=== PATIENT | male | born 1970 | race Caucasian/White ===

== ENCOUNTER 2016-10-19 21:21 | Observation (INO) | payer BC ==
[~2016-10-19] VITALS: Ht 182.9 cm; Wt 87.8 kg
[2016-10-19] MEDS ORDERED: KETOROLAC 15 MG/ML VIAL. IV ONE (22:00)
[2016-10-19] MEDS ORDERED: HYDROMORPHONE 2 MG/ML VIAL. IV ONE (22:00)
[2016-10-19] MEDS ORDERED: ONDANSETRON ODT 4 MG TAB.RAPDIS PO ONE (22:00)
[2016-10-19 22:28] LABS: BASO # 0.1 x10^3/uL (0.0-0.2); BASO % 1 % (0-3); EOS % 1 % (0-3); HEMATOCRIT 46.3 % (39.0-53.0); HEMOGLOBIN 15.2 g/dL (13.0-17.5); LYMPH # 1.9 x10^3/uL (1.0-4.8); LYMPH % 14 % (24-48); MEAN CORPUSCULAR HEMOGLOBIN 31 pg (25-35); MEAN CORPUSCULAR HGB CONC 33 g/dL (31-37); MEAN CORPUSCULAR VOLUME 93 fL (79-100); MONO % 7 % (0-9); NEUT % 79 % (31-73); PLATELET COUNT 165 x10^3/uL (140-400); RED BLOOD COUNT 4.98 x10^6/uL (4.30-5.70); RED CELL DISTRIBUTION WIDTH 13.4 % (11.5-14.5); WHITE BLOOD COUNT 14.1 x10^3/uL (4.0-11.0)
[2016-10-19 22:37] LABS: CALCIUM 8.6 mg/dL (8.5-10.1); CREATININE 1.1 mg/dL (0.7-1.3); GFR 71.8; POTASSIUM 3.7 mmol/L (3.5-5.1)
[2016-10-19 22:43] LABS: ALBUMIN 3.7 g/dL (3.4-5.0); TOTAL BILIRUBIN 0.4 mg/dL (0.2-1.0); TOTAL PROTEIN 7.4 g/dL (6.4-8.2)
[2016-10-19] MEDS ORDERED: ACETAMINOPHEN 325 MG TABLET. PO PRN (23:15)
[2016-10-19] MEDS ORDERED: ONDANSETRON PF 4 MG/2 ML VIAL. IV PRN (23:15)
[2016-10-19] MEDS ORDERED: NITROGLYCERIN SUBLINGUAL 0.4 MG BOTTLE OF 25. SL PRN (23:15)
--- NOTE | 2016-10-19 23:22 | PHYS DOC ---
Past Medical History Past Medical History: No Pertinent History Past Surgical History: Other Additional Past Surgical Histo: NECK, ANKLE Alcohol Use: Heavy Drug Use: None Adult General Chief Complaint Chief Complaint: MECHANICAL FALL HPI HPI Patient is a 46 year old gentleman who presents here today complaining of left shoulder pain after falling down earlier today. Patient reports that he tripped over his feet. Patient denies any dizziness, presyncope, chest pain, shortness of breath, or loss of consciousness before or after the episode. Patient's only current complaint is pain to his left shoulder. Patient's pain is described as sharp in nature and increases with movement of his left shoulder. The pain in his left shoulder started immediately after his fall and has been continuing since. Patient has no past medical history. Patient has no history of hypertension diabetes liver longer kidney problems. Patient has no history of coronary artery disease in the past. Patient has no family history of coronary artery disease in the past. Patient does not have a history of high cholesterol. Patient reports he smokes occasionally. Occasional alcohol. Drugs. Patient denies any recent cocaine, methamphetamine use. Patient denies any discomfort pressure sharp pain or any abnormal sensation in his chest. Patient denies any shortness of breath or diaphoresis or nausea. Patient reports she's never had any Cardiac history or workup in the past. Patient does not recall ever having an EKG done in the past either. Patient reports only pain he has in his left shoulder is ever since his fall and increases with motion of his left shoulder. Patient denies any exertional type of chest pain. Patient denies any family history of coronary artery disease. Patient's mother reports that his father did have some kind of tumor around his heart but she does no not know any other specifics regarding this tumor. Patient's physical exam is significant for tenderness to palpation to his left before meals joint. Patient does have soft tissue swelling and tenderness to the area. Patient's range of motion is intact but is somewhat limited secondary to the pain and discomfort. There is no other deformity or step-off. Patient does not have a exam that would be consistent with a dislocation of the shoulder. Patient is neurovascularly intact otherwise. Patient's x-ray nerve distribution is intact. Patient's pulses are intact. Patient had a shoulder x-ray which revealed an ac separation. This is consistent with his physical exam. Patient monitor revealed some nonspecific ST elevations. An EKG was obtained. EKG revealed ST segment elevation in II, III, and F aVF. We went back to question the patient once again and the patient again denies any chest pain discomfort or any kind of symptoms I'll be consistent with coronary artery disease or coronary spasms. Patient's labs were drawn. Patient's troponin is negative. A repeat EKG was performed on the patient approximately one hour after the first EKG of concern. Of interest is the patient's repeat EKG which shows some resolution in the nonspecific elevations in leads II, III, and F aVF. I had a long conversation with the patient regarding my concerns with the abnormal EKG. Despite the patient's lack of any symptoms I do not feel comfortable sending this patient home without further evaluation by cardiology. Given that the patient has actually no chest discomfort or pain at this time and the only complaint that he has his left shoulder pain that appears to be 100 % related to a mechanical fall and did not feel that he would be indicated for him to go to the cardiac [employer] at this time. Patient's repeat EKG at 2255 shows significant resolution of the elevations in his ST segments and currently does not meet criteria for ST elevation. We will get a second troponin on this patient which would be roughly 2 hours after his first troponin was obtained. Patient will be admitted for further observation and for evaluation by cardiology in the a.m. Review of Systems Review of Systems Constitutional: Denies fever or chills [] Eyes: Denies change in visual acuity, redness, or eye pain [] All other review systems are negative except as documented in the history of present illness portion. Current Medications Current Medications Current Medications Medications (Trade) Dose Ordered Sig/[facility] Start Time Stop Time Status Last Admin Dose Admin Acetaminophen (Tylenol) 650 mg PRN Q4HRS PRN 10/19/16 23:15 10/20/16 23:14 Acetaminophen/ Hydrocodone Bitart (Lortab 5/325) 1 tab Q6HRS PRN 10/19/16 23:15 UNV Aspirin (Toña Aspirin) 325 mg 1X ONCE 10/19/16 23:30 10/19/16 23:31 Hydromorphone HCl (Dilaudid) 0.5 mg 1X ONCE 10/19/16 22:00 10/19/16 22:01 DC 10/19/16 22:19 0.5 MG Ibuprofen (Motrin) 600 mg Q6HRS PRN 10/19/16 23:15 UNV Ketorolac Tromethamine (Toradol) 15 mg 1X ONCE 10/19/16 22:00 10/19/16 22:01 DC 10/19/16 22:16 15 MG Nitroglycerin (Nitrostat) 0.4 mg PRN Q5MIN PRN 10/19/16 23:15 10/20/16 23:14 Ondansetron HCl (Zofran Odt) 4 mg 1X ONCE 10/19/16 22:00 10/19/16 22:01 DC 10/19/16 22:15 4 MG Ondansetron HCl (Zofran) 4 mg PRN Q8HRS PRN 10/19/16 23:15 10/20/16 23:14 Allergies Allergies Allergies Coded Allergies Type Severity Reaction Last Updated Verified No Known Drug Allergies 10/19/16 No Physical Exam Physical Exam Constitutional: Well developed, well nourished, no acute distress, non-toxic appearance. [] HENT: Normocephalic, atraumatic, bilateral external ears normal, oropharynx moist, no oral exudates, nose normal. [] Eyes: PERRLA, EOMI, conjunctiva normal, no discharge. [] Neck: Normal range of motion, no tenderness, supple, no stridor. [] Cardiovascular:Heart rate regular rhythm, no murmur [] Lungs & Thorax: Bilateral breath sounds clear to auscultation [] Abdomen: Bowel sounds normal, soft, no tenderness, no masses, no pulsatile masses. [] Skin: Warm, dry, no erythema, no rash. [] Back: No tenderness, no CVA tenderness. [] Extremities: see above Neurologic: Alert and oriented X 3, normal motor function, normal sensory function, no focal deficits noted. [] Psychologic: Affect normal, judgement normal, mood normal. [] Current Patient Data Vital Signs Vital Signs Date Time Temp Pulse Resp B/P Pulse Ox O2 Delivery O2 Flow Rate FiO2 10/19/16 22:19 16 100 Room Air 10/19/16 21:35 98.0 52 96/64 98.0 Lab Values Laboratory Tests Test 10/19/16 22:15 White Blood Count 14.1x10^3/uL (4.0-11.0) H Red Blood Count 4.98x10^6/uL (4.30-5.70) Hemoglobin 15.2g/dL (13.0-17.5) Hematocrit 46.3% (39.0-53.0) Mean Corpuscular Volume 93fL (79-100) Mean Corpuscular Hemoglobin 31pg (25-35) Mean Corpuscular Hemoglobin Concent 33g/dL (31-37) Red Cell Distribution Width 13.4% (11.5-14.5) Platelet Count 165x10^3/uL (140-400) Neutrophils (%) (Auto) 79% (31-73) H Lymphocytes (%) (Auto) 14% (24-48) L Monocytes (%) (Auto) 7% (0-9) Eosinophils (%) (Auto) 1% (0-3) Basophils (%) (Auto) 1% (0-3) Neutrophils # (Auto) 11.1x10^3uL (1.8-7.7) H Lymphocytes # (Auto) 1.9x10^3/uL (1.0-4.8) Monocytes # (Auto) 0.9x10^3/uL (0.0-1.1) Eosinophils # (Auto) 0.1x10^3/uL (0.0-0.7) Basophils # (Auto) 0.1x10^3/uL (0.0-0.2) Sodium Level 144mmol/L (136-145) Potassium Level 3.7mmol/L (3.5-5.1) Chloride Level 105mmol/L (98-107) Carbon Dioxide Level 27mmol/L (21-32) Anion Gap 12 (6-14) Blood Urea Nitrogen 12mg/dL (8-26) Creatinine 1.1mg/dL (0.7-1.3) Estimated GFR (Cockcroft-Gault) 71.8 BUN/Creatinine Ratio 11 (6-20) Glucose Level 136mg/dL (70-99) H Calcium Level 8.6mg/dL (8.5-10.1) Total Bilirubin 0.4mg/dL (0.2-1.0) Aspartate Amino Transferase (AST) 28U/L (15-37) Alanine Aminotransferase (ALT) 35U/L (16-63) Alkaline Phosphatase 64U/L (46-116) Troponin I Quantitative < 0.017ng/mL (0.000-0.055) Total Protein 7.4g/dL (6.4-8.2) Albumin 3.7g/dL (3.4-5.0) Albumin/Globulin Ratio 1.0 (1.0-1.7) Laboratory Tests 10/19/16 22:15 Laboratory Tests 10/19/16 22:15 EKG EKG [] Radiology/Procedures Radiology/Procedures [] Course & Med Decision Making Course & Med Decision Making Pertinent Labs and Imaging studies reviewed. (See chart for details) [] Dragon Disclaimer Dragon Disclaimer This electronic medical record was generated, in whole or in part, using a voice recognition dictation system. Departure Departure Impression: Primary Impression: Abnormal EKG Additional Impressions: Derangement of left acromioclavicular joint Separation of left acromioclavicular joint Disposition: 09 ADMITTED INPATIENT Admitting Physician: Gemma Islas Condition: STABLE Referrals: NO PCP (PCP) Problem Qualifiers DELFIN HICKS MD Oct 19, 2016 23:22
[2016-10-19] MEDS ORDERED: ASPIRIN 325 MG TABLET PO ONE (23:30)
[2016-10-19] MEDS: HYDROCODONE/APAP 5/325MG TABLET. PO PRN (23:59)
[2016-10-20] VITALS (7 sets, daily range): BP systolic 96–132; BP diastolic 57–82
--- NOTE | 2016-10-20 01:38 | ACF ---
Admission Forms Criteria CARDIOLOGY GRG Clinical Indications for Admission to Inpatient Care ( Place 'X' for any and all applicable criteria): Hospital admission is needed for appropriate care of the patient because of ANY ONE of the following (1): [ ] I. Hemodynamic instability as indicated by ALL of the following (1)(2)(3) (4)(5) [ ]a) Vital signs or other findings not as expected for chronic patient condition or baseline [ ]b) Instability indicated by ANY ONE of the following: [ ]i) Hypotension [ ]ii) Symptomatic Tachycardia unresponsive to treatment ( e.g., analgesia, fluids, sedation as indicated) [ ]iii) Inadequate perfusion indicated by ANY ONE of the following: [ ] 1) Lactic acidosis (> 2 mmol/L) [ ] 2) New abnormal capillary refill (> 3 seconds) [ ] 3) Reduced urine output [ ] 4) New altered mental status [ ]iv) Orthostatic vital sign changes unresponsive to treatment (e.g., fluids) [ ]v) IV inotropic or vasopressor medication required to maintain adequate blood pressure or perfusion [ ] II. Severe heart failure as indicated by ANY ONE of the following(17)(18) [ ]a) Respiratory distress [ ]b) Hypotension [ ]c) Anasarca (refractory to outpatient therapy) [ ]d) Cardiac arrhythmias of immediate concern [ ]e) Myocardial ischemia [ ] III. Cardiac arrhythmias or findings of immediate concern indicated by ANY ONE of the following (19)(20): [ ] a) Heart rhythms that are inherently dangerous or unstable indicated by ANY ONE of the following (21)(22)(23): [ ] i) Resuscitated ventricular fibrillation or cardiac arrest [ ] ii) Ventricular escape rhythm [ ] iii) Sustained ventricular tachycardia (30 seconds or more of ventricular rhythm at greater than 100 beats per minute) [ ] iv) Nonsustained ventricular tachycardia and ANY ONE of the following: [ ] 1) Suspected cardiac ischemia as cause or consequence of ventricular tachycardia [ ] 2) In setting of acute myocarditis [ ] b) Unstable cardiac conduction defects indicated by ANY ONE of the following(23)(24)(25) [ ] i) Type II second-degree atrioventricular block [ ]ii) Third-degree atrioventricular block [ ]iii) New-onset left bundle branch block with suspected myocardial ischemia [ ]c) Any heart rhythm and ANY ONE of the following (21)(22)(26)(27) (28) [ ] i) Continuous long-term ECG monitoring needed (e.g., initiation of drug requiring monitoring for more than 24 hours) [ ] ii) Patient has automatic implanted cardioverter defibrillator that is repeatedly firing, malfunctioning, or in need of immediate adjustment of settings beyond the scope of ambulatory or observation care [ ]d) Heart rhythms of concern due to ANY ONE of the following: [ ] i) Hypotension [ ] ii) Respiratory distress [ ] iii) Association with other significant symptoms (e.g., bradycardia with syncope or ongoing dizziness, supraventricular tachycardia with chest pain (14)(15)(17) [ ] IV. Monitoring for cardiac contusion beyond the scope of observation care needed [A](30)(31)(32) [ ] V. Surgical or device complication (e.g., valve replacement complication , pacemaker dysfunction) (35)(41)(44)(45)(46) [ ] . Inpatient palliative care needed. [B](49) Also use Inpatient Palliative Care Criteria [ ] VII. Nonbacterial thrombotic (marantic) endocarditis (36)(43)(47)(48) [X] VIII. Cardiology condition, symptom, or finding for which emergency and observation care has failed or are not considered appropriate. [ ] IX. Acute valvular disease requiring inpatient as indicated by ANY ONE of the following (41) [ ]a) Acute valvular regurgitation (42) [ ]b) Noninfectious valvulitis (43) [ ]c) Obstructive valve thrombosis [ ]d) Paravalvular leak [ ]e) Other significant valvular disorder remaining after emergency or observation level of care (as appropriate) [ ]X. Pericardial disease requiring inpatient treatment as indicated by ANY ONE of the following (33)(34)(35)(36)(37) [ ]a) Suspected tamponade (38)(39)(40) [ ]b) Hemopericardium [ ]c) Other significant pericardial disorder remaining after emergency or observation level of care (as appropriate) [ ] XI. Cardiac ischemia beyond scope of emergency and observation care. [ ] XII. Hypertension requiring inpatient treatment as indicated by ANY ONE of the following (6)(7)(8) [ ]a) SBP greater than 220 mm Hg or DBP greater than 120 mmHg despite treatment [ ]b) SBP greater than 140 mm Hg or DBP greater than 100 mm Hg with evidence of acute end organ damage as indicated by ANY ONE of the following [ ] i) Encephalopathy [ ] ii) Acute renal failure as indicated by new onset of ANY ONE of the following (9)(10)(11)(12)(13) [ ]1) 3-fold rise in serum creatinine from baseline [ ]2) Serum creatinine greater than 4 mg/dL ( 354 micromoles/L) with acute rise greater than 0.5 mg/dL (44.2 micromoles/L) [ ]3) Reduction of more than 75% in estimated glomerular filtration rate from baseline [ ]4) Estimated glomerular filtration rate less than 35 mL/min/1.73m2 (0.59 mL/sec/1.73m2) in child up to 18 years of age [ ]5) Cessation of urine output indicated by ALL of the following [ ]A. Adequate volume status [ ]B. Inadequate urine output as indicated by ANY ONE of the following [ ]a. Urine output less than 0.3 mL/kg/hr for 24 hours [ ]b. Anuria (urine output less than 0.1 mL/kg/hr) for 12 hours [ ] iii) Aortic dissection [ ] iv) Myocardial Ischemia [ ] v) Left ventricular heart failure [ ]vi) Retinal Hemorrhage [ ]vii) Other significant finding [ ]c) Hypertension in child requiring inpatient treatment as indicated by ALL of the following(14)(15)(16) [ ] i) Outpatient treatment not effective, not available, or not appropriate [ ]ii) SBP or DBP greater than 95th percentile for age [ ]iii) Evidence of acute end organ damage as indicated by ANY ONE of the following [ ]1) Altered mental status [ ]2) Acute renal failure as indicated by new onset of ANY ONE of the following(9)(10)(11)(12)(13) [ ]A. 3-fold rise in serum creatinine from baseline [ ]B. Serum creatinine greater than 4 mg/dL (354 micromoles/L) with acute rise greater than 0.5 mg/dL (44.2 micromoles/L) [ ]C. Reduction of more than 75% in estimated glomerular filtration rate from baseline [ ]D. Estimated glomerular filtration rate less than 35 mL/min/1.73m2 (0.59 mL/sec/1.73m2) in child up to 18 years of age [ ]E. Cessation of urine output indicated by ALL of the following [ ]a. Adequate volume status [ ]b. Inadequate urine output as indicated by ANY ONE of the following [ ]i) Urine output less than 0.3 mL/kg/hr for 24 hours [ ]ii) Anuria ( urine output less than 0.1 mL/kg/hr) for 12 hours [ ]3) Severe headache [ ]4) Visual disturbance [ ]5) Retinal hemorrhage [ ]6) Other significant finding [ ]XIII. Complications of transplanted heart indicated by ANY ONE of the following(61): [ ]a) Acute graft rejection requiring inpatient management (eg, intravenous immunosuppression)(62)(63) [ ]b) Acute graft heart failure indicated by ANY ONE of the following(64): [ ]i) Hemodynamic instability [ ]ii) Cardiac arrhythmias of immediate concern [ ]iii) Pulmonary edema that is very severe (eg, mechanical ventilation needed, imminent or likely, need for 100% oxygen to keep oxygen saturation above 90%) [ ]iv) Pulmonary edema that is persistent as indicated by ALL of the following: [ ]1) New need for oxygen therapy to keep oxygen saturation above 90% (or increased FiO2 need from baseline) [ ]2) Has not improved sufficiently with emergency department or observation care IV diuretics or other heart failure treatments[E] [ ]v) Altered mental status that is severe or persistent [ ]vi) Increased creatinine (new on laboratory test) with reduction of more than 50% in estimated glomerular filtration rate from baseline [ ]vii) Progressively (ongoing) rising creatinine (known from past laboratory test) with reduction of more than 25% in estimated glomerular filtration rate from baseline [ ]viii) Acute renal failure [ ]ix) Acute peripheral ischemia (eg, examination shows pulseless, cool, mottled, or cyanotic extremity) [ ]x) Pulmonary artery catheter monitoring needed [ ]xi) Other sign or symptom of heart failure requiring inpatient treatment (ie, too severe or not responsive to outpatient and observation care treatment) [ ]c) Infection requiring inpatient management (eg, Hemodynamic instability, need for intravenous antimicrobial treatment)(66)(67)(68)(69)(70) [ ]d) Cardiac allograft vasculopathy requiring inpatient management ( eg evidence of cardiac ischemia)(71) [ ]e) Other complication of transplanted heart (eg, stroke, severe pulmonary hypertension, severe valvular dysfunction) requiring inpatient management(72) The original [facility] content created by [facility] has been revised. The portions of the content which have been revised are identified through the use of italic text or in bold, and [facility] has neither reviewed nor approved the modified material. All other unmodified content is copyright [facility]. Please see references footnoted in the original [facility] edition 2016 Admission Criteria Met?: Yes JAVAN HART Oct 20, 2016 01:38
[2016-10-20] MEDS: IBUPROFEN 600 MG TABLET. PO PRN ×3 (01:53→19:20)
[2016-10-20] MEDS: HYDROCODONE/APAP 5/325MG TABLET. PO PRN ×3 (07:41→21:32)
--- NOTE | 2016-10-20 08:12 | RAD ---
EXAM: CHEST 1 VIEW History: Left shoulder pain Comparison: 08/03/2009 TECHNIQUE: Single portable radiograph of the chest FINDINGS: The cardiac silhouette is unremarkable. The lungs are clear bilaterally. The costophrenic sulci are clear and well demarcated. There is mild superior translation of the clavicle in relation to the acromion. IMPRESSION: Mild superior translation of the distal clavicle in relation to the acromion, probable AC joint separation. No acute cardiopulmonary findings.
--- NOTE | 2016-10-20 08:26 | PDOC2 ---
CONSULT Date of Consult Date of Consult DATE: 10/20/16 TIME: 08:19 Reason for Consult Reason for Consult: Abnormal ekg Referring Physician Referring Physician: Dr. Islas Identification/Chief Complaint Chief Complaint Left shoulder pain Source Source: Patient History of Present Illness Reason for Visit: The patient is a 46-year-old male who came to the emergency room after a mechanical fall with injury to his left shoulder. Workup of his shoulder showed no fractures and the patient has been treated for pain and is feeling better today. The patient's initial EKG reportedly showed elevated ST segment changes in the inferior leads. The patient denied any chest pain, shortness of breath, dizziness or lightheadedness. He denies any history of coronary artery disease, congestive heart failure or cardiac arrhythmias. He's been monitored overnight with no chest discomfort developing. Troponin has been normal 3. The patient is now resting fairly comfortably in bed except for his left shoulder pain. Past Medical History Cardiovascular: HTN Past Surgical History Past Surgical History: No pertinent history Family History Family History: Hypertension Social History No ALCOHOL: social Current Problem List Problem List Problems Medical Problems: (1) Abnormal EKG Status: Acute (2) Derangement of left acromioclavicular joint Status: Acute (3) Separation of left acromioclavicular joint Status: Acute Current Medications Current Medications Current Medications Hydromorphone HCl (Dilaudid) 0.5 mg 1X ONCE IV Last administered on 10/19/16 22:19; Start 10/19/16 at 22:00; Stop 10/19/16 at 22:01; Status DC Ketorolac Tromethamine (Toradol) 15 mg 1X ONCE IV Last administered on 22:16; Start 10/19/16 at 22:00; Stop 10/19/16 at 22:01; Status DC Ondansetron HCl (Zofran Odt) 4 mg 1X ONCE PO Last administered on 10/19/16 22: 15; Start 10/19/16 at 22:00; Stop 10/19/16 at 22:01; Status DC Aspirin (Toña Aspirin) 325 mg 1X ONCE PO Last administered on 10/19/16 23:59 ; Start 10/19/16 at 23:30; Stop 10/19/16 at 23:31; Status DC Ondansetron HCl (Zofran) 4 mg PRN Q8HRS PRN IV NAUSEA/VOMITING; Start 10/19/16 at 23:15; Stop 10/20/16 at 23:14 Acetaminophen (Tylenol) 650 mg PRN Q4HRS PRN PO FEVER; Start 10/19/16 at 23:15; Stop 10/20/16 at 23:14 Nitroglycerin (Nitrostat) 0.4 mg PRN Q5MIN PRN SL CHEST PAIN; Start 10/19/16 at 23:15; Stop 10/20/16 at 23:14 Ibuprofen (Motrin) 600 mg PRN Q6HRS PRN PO MODERATE PAIN Last administered on 01:53; Start 10/19/16 at 23:15 Acetaminophen/ Hydrocodone Bitart (Lortab 5/325) 1 tab PRN Q6HRS PRN PO SEVERE PAIN Last administered on 10/20/16 07:41; Start 10/19/16 at 23:15 Allergies Allergies: Coded Allergies: No Known Drug Allergies (Unverified , 10/19/16) ROS Musculoskeletal: Yes Other (left shoulder pain) Physical Exam General: mild distress HEENT: Atraumatic Lungs: Clear to auscultation Heart: Regular rate Abdomen: Normal bowel sounds Vitals VITALS Vital Signs Date Time Temp Pulse Resp B/P Pulse Ox O2 Delivery O2 Flow Rate FiO2 10/20/16 07:41 Room Air 10/20/16 07:00 98.6 67 20 104/61 98 98.6 Labs Labs Laboratory Tests Test 10/19/16 22:15 10/20/16 00:01 10/20/16 05:10 White Blood Count 14.1x10^3/uL (4.0-11.0) Red Blood Count 4.98x10^6/uL (4.30-5.70) Hemoglobin 15.2g/dL (13.0-17.5) Hematocrit 46.3% (39.0-53.0) Mean Corpuscular Volume 93fL (79-100) Mean Corpuscular Hemoglobin 31pg (25-35) Mean Corpuscular Hemoglobin Concent 33g/dL (31-37) Red Cell Distribution Width 13.4% (11.5-14.5) Platelet Count 165x10^3/uL (140-400) Neutrophils (%) (Auto) 79% (31-73) Lymphocytes (%) (Auto) 14% (24-48) Monocytes (%) (Auto) 7% (0-9) Eosinophils (%) (Auto) 1% (0-3) Basophils (%) (Auto) 1% (0-3) Neutrophils # (Auto) 11.1x10^3uL (1.8-7.7) Lymphocytes # (Auto) 1.9x10^3/uL (1.0-4.8) Monocytes # (Auto) 0.9x10^3/uL (0.0-1.1) Eosinophils # (Auto) 0.1x10^3/uL (0.0-0.7) Basophils # (Auto) 0.1x10^3/uL (0.0-0.2) Sodium Level 144mmol/L (136-145) Potassium Level 3.7mmol/L (3.5-5.1) Chloride Level 105mmol/L (98-107) Carbon Dioxide Level 27mmol/L (21-32) Anion Gap 12 (6-14) Blood Urea Nitrogen 12mg/dL (8-26) Creatinine 1.1mg/dL (0.7-1.3) Estimated GFR (Cockcroft-Gault) 71.8 BUN/Creatinine Ratio 11 (6-20) Glucose Level 136mg/dL (70-99) Calcium Level 8.6mg/dL (8.5-10.1) Total Bilirubin 0.4mg/dL (0.2-1.0) Aspartate Amino Transf (AST/SGOT) 28U/L (15-37) Alanine Aminotransferase (ALT/SGPT) 35U/L (16-63) Alkaline Phosphatase 64U/L (46-116) Troponin I Quantitative < 0.017ng/mL (0.000-0.055) < 0.017ng/mL (0.000-0.055) < 0.017ng/mL (0.000-0.055) Total Protein 7.4g/dL (6.4-8.2) Albumin 3.7g/dL (3.4-5.0) Albumin/Globulin Ratio 1.0 (1.0-1.7) Laboratory Tests Test 10/19/16 22:15 10/20/16 00:01 10/20/16 05:10 White Blood Count 14.1x10^3/uL (4.0-11.0) Red Blood Count 4.98x10^6/uL (4.30-5.70) Hemoglobin 15.2g/dL (13.0-17.5) Hematocrit 46.3% (39.0-53.0) Mean Corpuscular Volume 93fL (79-100) Mean Corpuscular Hemoglobin 31pg (25-35) Mean Corpuscular Hemoglobin Concent 33g/dL (31-37) Red Cell Distribution Width 13.4% (11.5-14.5) Platelet Count 165x10^3/uL (140-400) Neutrophils (%) (Auto) 79% (31-73) Lymphocytes (%) (Auto) 14% (24-48) Monocytes (%) (Auto) 7% (0-9) Eosinophils (%) (Auto) 1% (0-3) Basophils (%) (Auto) 1% (0-3) Neutrophils # (Auto) 11.1x10^3uL (1.8-7.7) Lymphocytes # (Auto) 1.9x10^3/uL (1.0-4.8) Monocytes # (Auto) 0.9x10^3/uL (0.0-1.1) Eosinophils # (Auto) 0.1x10^3/uL (0.0-0.7) Basophils # (Auto) 0.1x10^3/uL (0.0-0.2) Sodium Level 144mmol/L (136-145) Potassium Level 3.7mmol/L (3.5-5.1) Chloride Level 105mmol/L (98-107) Carbon Dioxide Level 27mmol/L (21-32) Anion Gap 12 (6-14) Blood Urea Nitrogen 12mg/dL (8-26) Creatinine 1.1mg/dL (0.7-1.3) Estimated GFR (Cockcroft-Gault) 71.8 BUN/Creatinine Ratio 11 (6-20) Glucose Level 136mg/dL (70-99) Calcium Level 8.6mg/dL (8.5-10.1) Total Bilirubin 0.4mg/dL (0.2-1.0) Aspartate Amino Transf (AST/SGOT) 28U/L (15-37) Alanine Aminotransferase (ALT/SGPT) 35U/L (16-63) Alkaline Phosphatase 64U/L (46-116) Troponin I Quantitative < 0.017ng/mL (0.000-0.055) < 0.017ng/mL (0.000-0.055) < 0.017ng/mL (0.000-0.055) Total Protein 7.4g/dL (6.4-8.2) Albumin 3.7g/dL (3.4-5.0) Albumin/Globulin Ratio 1.0 (1.0-1.7) Assessment/Plan Assessment/Plan 1. Mechanical fall with injury to his left shoulder. Patient has been worked up and treated as above. 2. Abnormal EKG. No reports of chest pain. No history of coronary artery disease , congestive heart failure or cardiac arrhythmias. Troponin normal 3. We'll check an echocardiogram today to look for wall motion abnormalities. Otherwise the patient could be considered for a outpatient stress test for further follow- up. 3. Borderline hypertension. We'll continue to monitor. Thank you for allowing us to participate in the care of your patient. RAFIQ MASON MD Oct 20, 2016 08:25
--- NOTE | 2016-10-20 08:39 | RAD ---
Examination: 2 views of the left shoulder History: History of trauma, pain left shoulder. Comparison: None available Findings: There is mild superior translation of the distal clavicle in relation to the acromion with widening of the acromioclavicular joint likely AC joint separation. The humeral head is within the glenoid. Impression: 1.There is mild superior translation of the distal clavicle in relation to the acromion with widening of the acromioclavicular joint likely AC joint separation.
--- NOTE | 2016-10-20 09:55 | EKG ---
[facility] [address] [place] [address] Test Date: 2016-10-19 Test Time: 22:55:34 Pat Name: EVIE YU Department: Room: 410 Gender: M Plan Examiner: : 1970 Requested By: DELFIN HICKS Order Number: [id number] Reading MD: Rosalio Wang Measurements Intervals [place] Rate: 74 P: 56 [place]: 172 QRS: 59 QRSD: 102 T: 49 QT: 388 QTc: 436 Interpretive Statements SINUS RHYTHM ST & T ABNORMALITY, CONSIDER RECENT INFERIOR MYOCARDIAL OR PERICARDIAL DAMAGE RI6.01 Unconfirmed report No previous ECG available for comparison Electronically Signed On 10-21-2016 14:08:51 INSURANCE INSPECTOR by Rosalio Wang
--- NOTE | 2016-10-20 09:57 | EKG ---
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 RI6.01 Unconfirmed report No previous ECG available for comparison Electronically Signed On 10-21-2016 14:08:24 LEGISLATIVE ADVOCATE by Rosalio Wang
--- NOTE | 2016-10-20 14:06 | SSS ---
ADMIT DATE: 10/20/2016 CHIEF COMPLAINT: Left shoulder pain after fall. HISTORY OF THE PRESENT ILLNESS: The patient is a pleasant middle-aged male who fell. He has some shoulder pain. While in the ER, he also had some subtle EKG changes. Chest x-ray was showing a displaced AC joint. The shoulder x-ray showed similar changes. Basically, he was admitted overnight for observation. This morning, he is doing better. I plan to have Orthopedics see him and then if they are okay, let him go. PHYSICAL EXAMINATION: VITAL SIGNS: Temperature afebrile, pulse 77, respirations 18, and blood pressure 144/90. GENERAL: He is alert, cooperative. HEART: Normal S1 and S2. LUNGS: Clear. ABDOMEN: Soft. EXTREMITIES: No edema. The left arm is a little painful to touch at the shoulder. ENDOCRINE: No thyromegaly. LYMPHATICS: No cervical nodes. HEMATOPOIETIC: No bruising. LABORATORY DATA: White count 14, hemoglobin 15, and platelets 165. Electrolytes are normal. Troponin is 0. ASSESSMENT AND PLAN: Fall with left shoulder acromioclavicular separation with an incidental finding of leukocytosis, suspect that reactive to his fall and acromioclavicular separation. Clinically, he seems stable. I will go ahead and let him go home if Orthopedics and Cardiology are okay with it. DISPOSITION: Home. ACTIVITY: As tolerated. DIET: Low sodium. MEDICATIONS: Please see the MRAD. Total time 32 minutes. HELENE HURT DO DR: DEYA/zoë JOB#: [id number] / [id number]
--- NOTE | 2016-10-20 15:40 | CARD ---
APPROVED REPORT EXAM: Two-dimensional and M-mode echocardiogram with Doppler and color Doppler. Other Information Quality : Average Rhythm : NSR INDICATION Abnormal ECG 2D DIMENSIONS RVDd2.8 (2.9-3.5cm)Left Atrium(2D)3.5 (1.6-4.0cm) IVSd1.0 (0.7-1.1cm)Aortic Root(2D)3.0 (2.0-3.7cm) LVDd5.4 (3.9-5.9cm)LVOT Diameter2.2 (1.8-2.4cm) PWd1.0 (0.7-1.1cm)LVDs2.8 (2.5-4.0cm) FS (%) 27.6 %SV111.8 ml LVEF(%)58.5 (>50%) Aortic Valve AoV Peak Jared.142.2cm/sAoV VTI29.0cm AO Peak GR.8.1mmHgLVOT VTI 22.62cm AO Mean GR.5mmHgAVA (VTI)2.86cm2 Mitral Valve MV E Jfddlizo58.1cm/sMV E Peak Gr.3mmHg MV DECEL ROBT370pdEG A Jilwhzsw79.9cm/s MV E Mean Gr.1mmHgMV MMP09iz E/A Ratio1.6MV A Xuapsvab284vl MVA (PHT)3.67cm2 TDI Lateral E' P. V14.21cm/sMedial E' P. V10.46cm/s E/Lateral E'5.2E/Medial E'7.1 Tricuspid Valve TR P. Inxqpxyo645zh/sRAP WQBGLYSX0ngLp TR Peak Gr.24imCvHVTM99lyHu LEFT VENTRICLE The left ventricle is normal size. There is normal left ventricular wall thickness. Left ventricle sy stolic function is normal. The Ejection Fraction is 55-60%. Septal motion consistent with conduction abnormality. The left ventricular diastolic function and filling is normal for age. RIGHT VENTRICLE The right ventricle is normal size. The right ventricular systolic function is normal. ATRIA The left atrium size is normal. The right atrium size is normal. The interatrial septum is intact wit h no evidence for an atrial septal defect or patent foramen ovale as noted on 2-D or Doppler imaging. AORTIC VALVE The aortic valve is normal in structure and function. The aortic valve is trileaflet. Doppler and Col or Flow revealed no significant aortic regurgitation. There is no significant aortic valvular stenosi s. MITRAL VALVE The mitral valve is normal in structure and function. There is no mitral valve stenosis. Doppler and Color Flow revealed trace mitral regurgitation. TRICUSPID VALVE The tricuspid valve is normal in structure and function. Doppler and Color Flow revealed trace tricus pid regurgitation. The PA pressure was estimated at 18 mmHg. There is no tricuspid valve stenosis. PULMONIC VALVE The pulmonic valve is not well visualized. Doppler and Color Flow revealed no pulmonic valvular regur gitation. There is no pulmonic valvular stenosis. GREAT VESSELS The aortic root is normal in size. The IVC is normal in size and collapses >50% with inspiration. PERICARDIAL EFFUSION There is no evidence of significant pericardial effusion. Critical Notification Critical Value: No <Conclusion> Left ventricle systolic function is normal. The Ejection Fraction is 55-60%. Septal motion consistent with conduction abnormality, otherwise no significant wall motion or valvula r abnormalities.
[2016-10-21 03:20] VITALS: BP 111/64
[2016-10-21 07:00] VITALS: BP 113/71
--- NOTE | 2016-10-21 08:13 | RAD ---
EXAM: Left shoulder one view. HISTORY: Acromioclavicular injury. COMPARISON: None. FINDINGS: A single axillary view of the left shoulder is obtained. No fractures are identified. Acromioclavicular and glenohumeral joint spaces and alignment appear preserved in this projection. IMPRESSION: 1. No fracture or malalignment is appreciated. A complete study could be performed if there is further concern.
[2016-10-21] MEDS: HYDROCODONE/APAP 5/325MG TABLET. PO PRN (08:21)
[2016-10-21 11:00] VITALS: BP 139/79
--- NOTE | 2016-10-21 11:04 | PDOC ---
CHELLEIDANIA KERRDUANE Awan OUTPATIENT PHARMACY MANAGER 10/21/16 1104: ORTHO PROGRESS NOTES Subjective Patient fell onto the left shoulder. Pain in the left shoulder worse with movement, especially trying to lift the arm up overhead. Vitals Vital Signs Date Time Temp Pulse Resp B/P Pulse Ox O2 Delivery O2 Flow Rate FiO2 10/21/16 09:33 Room Air 10/21/16 07:00 97.4 63 14 113/71 97 97.4 Labs Laboratory Tests Test 10/19/16 22:15 10/20/16 00:01 10/20/16 05:10 White Blood Count 14.1x10^3/uL (4.0-11.0) Red Blood Count 4.98x10^6/uL (4.30-5.70) Hemoglobin 15.2g/dL (13.0-17.5) Hematocrit 46.3% (39.0-53.0) Mean Corpuscular Volume 93fL (79-100) Mean Corpuscular Hemoglobin 31pg (25-35) Mean Corpuscular Hemoglobin Concent 33g/dL (31-37) Red Cell Distribution Width 13.4% (11.5-14.5) Platelet Count 165x10^3/uL (140-400) Neutrophils (%) (Auto) 79% (31-73) Lymphocytes (%) (Auto) 14% (24-48) Monocytes (%) (Auto) 7% (0-9) Eosinophils (%) (Auto) 1% (0-3) Basophils (%) (Auto) 1% (0-3) Neutrophils # (Auto) 11.1x10^3uL (1.8-7.7) Lymphocytes # (Auto) 1.9x10^3/uL (1.0-4.8) Monocytes # (Auto) 0.9x10^3/uL (0.0-1.1) Eosinophils # (Auto) 0.1x10^3/uL (0.0-0.7) Basophils # (Auto) 0.1x10^3/uL (0.0-0.2) Sodium Level 144mmol/L (136-145) Potassium Level 3.7mmol/L (3.5-5.1) Chloride Level 105mmol/L (98-107) Carbon Dioxide Level 27mmol/L (21-32) Anion Gap 12 (6-14) Blood Urea Nitrogen 12mg/dL (8-26) Creatinine 1.1mg/dL (0.7-1.3) Estimated GFR (Cockcroft-Gault) 71.8 BUN/Creatinine Ratio 11 (6-20) Glucose Level 136mg/dL (70-99) Calcium Level 8.6mg/dL (8.5-10.1) Total Bilirubin 0.4mg/dL (0.2-1.0) Aspartate Amino Transf (AST/SGOT) 28U/L (15-37) Alanine Aminotransferase (ALT/SGPT) 35U/L (16-63) Alkaline Phosphatase 64U/L (46-116) Troponin I Quantitative < 0.017ng/mL (0.000-0.055) < 0.017ng/mL (0.000-0.055) < 0.017ng/mL (0.000-0.055) Total Protein 7.4g/dL (6.4-8.2) Albumin 3.7g/dL (3.4-5.0) Albumin/Globulin Ratio 1.0 (1.0-1.7) X-Rays X-rays of the left shoulder reviewed by myself. X-rays show superior migration of the distal clavicle in relation to the acromion suggesting an AC separation. Notes Patient is awake and alert sitting up in bed. Breathing unlabored, no acute distress. Mood and affect appropriate. Neurovascular intact left upper extremity. Tender and palpable deformity at the acromioclavicular joint representing AC separation. Active forward elevation to about 80. Strong kitchen worker. Problems: (1) Separation of left acromioclavicular joint Assessment and Plan No surgical intervention indicated. Sling as needed for support. Passive range of motion exercises reviewed with the patient. Follow up in 1 to 2 weeks after discharge with myself or Dr. Reno. office number [phone] MAHENDRA RENO II, MD 10/22/16 1252: Problem Qualifiers (1) Separation of left acromioclavicular joint: Encounter type: initial encounter Qualified Code: S43.102A - Unspecified dislocation of left acromioclavicular joint, initial encounter CRISTINE ALONZO APRN Oct 21, 2016 11:04 MAHENDRA RENO II, MD Oct 22, 2016 12:52
[2016-10-21] MEDS ORDERED: IBUP-1007 PO (12:19)
[2016-10-21] MEDS ORDERED: HYDR-2666 PO (12:19)
--- NOTE | 2016-10-21 12:23 | PDOC3 ---
Discharge Summary Visit Information Date of Admission: Oct 19, 2016 Date of Discharge: Oct 21, 2016 Admitting Diagnosis: shoulder pain Final Diagnosis Problems Medical Problems: (1) Abnormal EKG Status: Acute (2) Derangement of left acromioclavicular joint Status: Acute (3) Separation of left acromioclavicular joint Status: Acute Brief Hospital Course Allergies Allergies Coded Allergies Type Severity Reaction Last Updated Verified No Known Drug Allergies 10/19/16 No Vital Signs Vital Signs Date Time Temp Pulse Resp B/P Pulse Ox O2 Delivery O2 Flow Rate FiO2 10/21/16 11:00 98.0 60 14 139/79 96 Room Air 98.0 Lab Results Laboratory Tests Test 10/19/16 22:15 10/20/16 00:01 10/20/16 05:10 White Blood Count 14.1x10^3/uL (4.0-11.0) Red Blood Count 4.98x10^6/uL (4.30-5.70) Hemoglobin 15.2g/dL (13.0-17.5) Hematocrit 46.3% (39.0-53.0) Mean Corpuscular Volume 93fL (79-100) Mean Corpuscular Hemoglobin 31pg (25-35) Mean Corpuscular Hemoglobin Concent 33g/dL (31-37) Red Cell Distribution Width 13.4% (11.5-14.5) Platelet Count 165x10^3/uL (140-400) Neutrophils (%) (Auto) 79% (31-73) Lymphocytes (%) (Auto) 14% (24-48) Monocytes (%) (Auto) 7% (0-9) Eosinophils (%) (Auto) 1% (0-3) Basophils (%) (Auto) 1% (0-3) Neutrophils # (Auto) 11.1x10^3uL (1.8-7.7) Lymphocytes # (Auto) 1.9x10^3/uL (1.0-4.8) Monocytes # (Auto) 0.9x10^3/uL (0.0-1.1) Eosinophils # (Auto) 0.1x10^3/uL (0.0-0.7) Basophils # (Auto) 0.1x10^3/uL (0.0-0.2) Sodium Level 144mmol/L (136-145) Potassium Level 3.7mmol/L (3.5-5.1) Chloride Level 105mmol/L (98-107) Carbon Dioxide Level 27mmol/L (21-32) Anion Gap 12 (6-14) Blood Urea Nitrogen 12mg/dL (8-26) Creatinine 1.1mg/dL (0.7-1.3) Estimated GFR (Cockcroft-Gault) 71.8 BUN/Creatinine Ratio 11 (6-20) Glucose Level 136mg/dL (70-99) Calcium Level 8.6mg/dL (8.5-10.1) Total Bilirubin 0.4mg/dL (0.2-1.0) Aspartate Amino Transf (AST/SGOT) 28U/L (15-37) Alanine Aminotransferase (ALT/SGPT) 35U/L (16-63) Alkaline Phosphatase 64U/L (46-116) Troponin I Quantitative < 0.017ng/mL (0.000-0.055) < 0.017ng/mL (0.000-0.055) < 0.017ng/mL (0.000-0.055) Total Protein 7.4g/dL (6.4-8.2) Albumin 3.7g/dL (3.4-5.0) Albumin/Globulin Ratio 1.0 (1.0-1.7) Brief Hospital Course Mr. Lopez is a 46 old gentleman admi left shoulder pain after falling down w/u syncope shoulder pain, AC separation cardiac risk is limited for shoulder, No surgical intervention indicated. Sling as needed for support. Passive range of motion exercises reviewed with Ortho consult Left ventricle systolic function is normal. The Ejection Fraction is 55-60%. Septal motion consistent with conduction abnormality, otherwise no significant wall motion or valvular abnormalities. Discharge Information Condition at Discharge: Improved Follow Up: Weeks Disposition/Orders: D/C to Home Scheduled PRN Hydrocodone Bit/Acetaminophen (Hydrocodone-Apap 5-325 ) 1 TAB PO PRN Q6HRS PRN PRN SEVERE PAIN Ibuprofen (Ibuprofen) 600 MG PO PRN Q6HRS PRN PRN MODERATE PAIN Patient Instructions Patient Instructions X-rays show superior migration of the distal clavicle in relation to the acromion suggesting an AC separation. time > 30 min wear shoulder sling when upright Follow up in 1 to 2 weeks after discharge with Dr. Ferrer or JAIDEN Elias, . office number [phone] CELIO PICKENS MD Oct 21, 2016 12:22
--- NOTE | 2016-10-22 04:41 | CONS ---
DATE OF CONSULTATION: 10/21/2016 REFERRING PROVIDER: Dr. Ward. CONSULTING PROVIDER: Graham Ferrer MD. REASON FOR CONSULTATION: Left acromioclavicular injury. CHIEF COMPLAINT: Left shoulder pain. HISTORY OF PRESENT ILLNESS: The patient is a very pleasant, 46-year-old gentleman, who was admitted complaining of left shoulder pain after falling down. He tells me he tripped over his own feet. He denied any preceding symptoms. He tells me his pain is quite severe, worse with any arm movement. He has been wearing a sling. He was admitted for cardiac workup for an EKG abnormality. Cardiology did evaluate the patient and felt there was no further intervention needed as he was asymptomatic without any cardiac history. He has had normal troponins x 3. He denies any pain radiating down from his shoulder. As I mentioned, his pain is worse with any movement of his arm away from his body. No prior history of any shoulder complaints. ALLERGIES: None. MEDICATIONS: Reviewed. Please see MRAD. PAST MEDICAL HISTORY: Healthy. PAST SURGICAL HISTORY: Ankle. SOCIAL HISTORY: Uses alcohol frequently. No illicit drug use per his report. REVIEW OF SYSTEMS: Twelve-point review of systems negative except as per HPI. PHYSICAL EXAMINATION: GENERAL: The patient is alert and oriented, no acute distress. Mood and affect are appropriate. He is walking around his hospital room. HEENT: Head normocephalic, atraumatic. Extraocular muscles are intact. CARDIOVASCULAR: Regular rate and rhythm, radial pulses 2+ and symmetric. LUNGS: Respirations are unlabored with symmetric chest rise. ABDOMEN: Soft, nondistended. EXTREMITIES: Examination of bilateral upper extremities reveals compression of his left shoulder girdle relative to his clavicle. He is tender over this area. There is some ecchymosis. His integumentary system is intact. Motor and sensation intact in median, radial, and ulnar nerves in bilateral upper extremities. No tenderness in his scapula. He does have some upper trapezius mild tenderness to palpation. IMAGING: X-rays are reviewed and interpreted by myself, consistent with AC separation, type 3. IMPRESSION: Closed left acromioclavicular separation. PLAN: I did discuss with this gentleman that he need to use the sling for comfort and follow up with myself or my nurse practitioner next week and we will get him started on outpatient physical therapy to help facilitate his recovery. We did discuss possible long-term sequelae and answered his questions. We will see him back in my clinic on an outpatient basis. GRAHAM FERRER MD DR: BURKE/zoë JOB#: [id number] / [id number] JONATHAN
== END 2016-10-21 14:25 | disposition home or self-care (01) ==
LOC: ER 21:21 → 4 NORTH 23:05
PROVIDERS: ADMIT Internal Medicine; ATTEND Internal Medicine
DX: S49.92XA Unspecified injury of left shoulder and upper arm, initial encounter (principal); S43.102A Unspecified dislocation of left acromioclavicular joint, initial encounter; M24.812 Other specific joint derangements of left shoulder, not elsewhere classified; R94.31 Abnormal electrocardiogram [ECG] [EKG]; I10 Essential (primary) hypertension; W19.XXXA Unspecified fall, initial encounter; Y93.89 Activity, other specified; Y92.89 Other specified places as the place of occurrence of the external cause; Y99.8 Other external cause status
CPT/HCPCS: 36415; 71010; 73020; 73030; 80053; 84484; 85027; 93005; 93306; 96374; 96375; 99285; G0378; J1170; J1885; Q0162; G0379